=== PATIENT | female | born 1980 | race Caucasian/White ===

== ENCOUNTER 2018-12-18 09:43 | Emergency (ER) | payer MEDICAID, SELFPAY ==
[2018-12-18 09:44] VITALS: PULSE 100; RESP 18; TEMP 36.6; O2SAT 99; BMI 23.9
--- NOTE | 2018-12-18 10:07 | ED.VISSUMM ---
- ER Visit Summary Date of Service: 12/18/18 Chief Complaint: Sore throat History of Present Illness: The patient is a 38 F who presents with a sore throat that started yesterday. Pain is worse on the left side, but she does have some pain on the right as well. She also reports left ear pain. No fevers. No other symptoms. Physical Examination: Afebrile and vital signs unremarkable. Left TM shows effusion and she has posterior oropharyngeal erythema. No sign of abscess. Airway intact. Skin appears normal. HEENT exam otherwise unremarkable. Neck unremarkable. Test Results: None indicated Emergency Department Course and Treatment: Patient treated with a prednisone burst therapy and azithromycin. Adht-brf-yiscqwr remedies for pain. Follow-up with primary care for recheck. Return for any new or worsening issues. Treatment Plan: As above Disposition: Discharge Impression: 1. Pharyngitis This note was generated with [employer] dictation software. It may contain incorrect words, spelling, and punctuation that were not noted in review of the chart prior to signing ED Disposition - Plan for ED Patient: Referrals: Devendra Knight MD [Primary Care Provider] -
--- NOTE | 2018-12-18 10:10 | ED.DCSUM_ITS ---
- ER Visit Summary Date of Service: 12/18/18 Chief Complaint: Sore throat History of Present Illness: The patient is a 38 F who presents with a sore throat that started yesterday. Pain is worse on the left side, but she does have some pain on the right as well. She also reports left ear pain. No fevers. No other symptoms. Physical Examination: Afebrile and vital signs unremarkable. Left TM shows effusion and she has posterior oropharyngeal erythema. No sign of abscess. Airway intact. Skin appears normal. HEENT exam otherwise unremarkable. Neck unremarkable. Test Results: None indicated Emergency Department Course and Treatment: Patient treated with a prednisone burst therapy and azithromycin. Pmzm-oaf-piesaib remedies for pain. Follow-up with primary care for recheck. Return for any new or worsening issues. Treatment Plan: As above Disposition: Discharge Impression: 1. Pharyngitis This note was generated with [employer] dictation software. It may contain incorrect words, spelling, and punctuation that were not noted in review of the chart prior to signing ED Disposition - Plan for ED Patient: Referrals: Devendra Knight MD [Primary Care Provider] -
--- NOTE | 2018-12-18 10:10 | ED.DEP ---
ED Disposition - Plan for ED Patient: Instructions: ED Pharyngitis Viral Prescriptions: Azithromycin 500 mg PO DAILY 4 Days #8 tab Prednisone 10 mg PO UD #33 tab Referrals: Devendra Knight MD [Primary Care Provider] -
[2018-12-18] MEDS: Azithromycin 250 MG Tablet 500 MG PO (10:34)
[2018-12-18] MEDS: predniSONE 20 MG Tablet 60 MG PO (10:34)
[2018-12-18 10:35] VITALS: PULSE 99; RESP 17; O2SAT 99
== END 2018-12-18 10:39 | disposition home or self-care (01) ==
LOC: ED 10:27
PROVIDERS: Emergency Provider Emergency Medicine; Family Provider Family Medicine; PCP Family Medicine
DX: J02.9 Acute pharyngitis, unspecified (principal)
CPT/HCPCS: 99283

== ENCOUNTER 2019-08-23 14:34 | Emergency (ER) | payer MEDICAID, SELFPAY ==
[2019-08-23 14:39] VITALS: BP 131/84; PULSE 98; RESP 18; TEMP 37; O2SAT 100; BMI 24.4
--- NOTE | 2019-08-23 14:43 | ED.VISSUMM ---
- ER Visit Summary Date of Service: 08/23/19 Chief Complaint: Scalp laceration History of Present Illness: The patient is a 39 F no significant past medical history besides asthma. She was in her kitchen at home stood up forgot the cabinet door was open and lacerated top of her scalp. This occurred within the last hour. No LOC. She is on no blood thinners. Denies any other complaints. No neck pain or headache. She states her last tetanus shot is probably more than 10 years ago and needs updated. Physical Examination: Well-appearing female no acute distress. Vital signs are stable and afebrile. HEENT exam is 2-1/2 to 3 inch laceration on the top of her scalp. Involves the skin and subcu tissue. There is mild oozing. No pulsatile bleeding. No signs of foreign body or infection. No significant hematoma. Pupils are round reactive light. No facial trauma. C-spine nontender with normal range of motion of her neck. Lungs are clear to auscultation bilaterally. Heart regular rhythm. Chest wall nontender. Abdomen soft nontender. She is moving all 4 extremities. Neurovascularly intact and nontender. Back is nontender. Neurologically she is awake and alert with no focal motor deficits. GCS of 15. Test Results: None Emergency Department Course and Treatment: Lidocaine for local anesthetic. Tetanus updated. Injury note: Scalp laceration. Locally anesthetized with lidocaine. Cleaned with Shur-Clens. Washed and irrigated with saline. Explored. Involve the skin and subcu tissue. The wound is approximately 6 to 8 cm in length. Explored. No foreign bodies noted. No bony step-off. Closed using 5 simple interrupted 4-0 Ethilon sutures. Proper hemostasis wound closure obtained. Patient tolerated procedure well. Treatment Plan: Ice to the area. Wound care. Watch for any signs of infection. Suture removal 10 days. Disposition: Discharge Impression: Scalp laceration of 6 cm with emergency department repair Tetanus updated This note was generated with [employer] dictation software. It may contain incorrect words, spelling, and punctuation that were not noted in review of the chart prior to signing ED Disposition - Plan for ED Patient: Disposition: Home or Assisted Living Instructions: LACERATION, Scalp Referrals: Devendra Knight MD [Primary Care Provider] - 10 Day for suture removal Additional Instructions: Ice to scalp to decrease pain and swelling. Tylenol Motrin for pain and swelling. Keep the wound clean apply antibiotic ointment daily. Watch for any signs of infection such as pus, redness, swelling or fever or if seen return. Stitches should be removed in 10 days. Your tetanus shot has been updated and should be good for about 10 years.
--- NOTE | 2019-08-23 14:46 | ED.DEP ---
ED Disposition - Plan for ED Patient: Disposition: Home or Assisted Living Instructions: LACERATION, Scalp Referrals: Devendra Knight MD [Primary Care Provider] - 10 Day for suture removal Additional Instructions: Ice to scalp to decrease pain and swelling. Tylenol Motrin for pain and swelling. Keep the wound clean apply antibiotic ointment daily. Watch for any signs of infection such as pus, redness, swelling or fever or if seen return. Stitches should be removed in 10 days. Your tetanus shot has been updated and should be good for about 10 years.
[2019-08-23] MEDS: Diphth,Pertuss(Acell),Tet Vac 0.5 ML Vial IM (14:52)
== END 2019-08-23 15:26 | disposition home or self-care (01) ==
LOC: ED 15:26
PROVIDERS: Emergency Provider Emergency Medicine; Family Provider Family Medicine; PCP Family Medicine
DX: S01.01XA Laceration without foreign body of scalp, initial encounter (principal); Z23 Encounter for immunization; J45.909 Unspecified asthma, uncomplicated; Z72.0 Tobacco use; W26.8XXA Contact with other sharp object(s), not elsewhere classified, initial encounter; Y93.89 Activity, other specified; Y92.000 Kitchen of unspecified non-institutional (private) residence as the place of occurrence of the external cause; Y99.8 Other external cause status
CPT/HCPCS: 12002; 90471; 90715; 99283

== ENCOUNTER 2019-11-06 15:35 | Emergency (ER) | payer MEDICAID, SELFPAY ==
[2019-11-06 15:36] VITALS: BP 111/79; PULSE 118; RESP 16; TEMP 36.6; O2SAT 99; BMI 25.0
--- NOTE | 2019-11-06 16:11 | ED.DCSUM_ITS ---
History of Present Illness Chief Complaint: Nausea/Vomiting Informant: Patient - Abdominal Pain/Flank Pain Onset: Yesterday Context: Gradual Onset Timing: Intermittent Quality: Cramping Location: Diffuse Worsened by: Food - Nausea/Vomiting/Emesis GI Symptom: Nausea, Vomiting Onset: Yesterday Quality: Nonbilious - Diarrhea/Melena/Hematochezia GI Symptom: Diarrhea Onset: Yesterday Stool Quality: Watery. Negative for: Shama Thomason Narrative: Patient is a 39-year-old female with history of asthma presenting with vomiting and diarrhea. She states her symptoms started yesterday. She states she is unable to eat or drink anything because of the severity of her symptoms. She has had to many episodes to count. She has cramping abdominal pain right before these episodes. She notes that her sisters household all had the same symptoms the day before her. She was with them for . Her symptoms started the following day. Patient denies associated fever but does have chills. She denies any abdominal pain currently. She is concerned about dehydration which is why she came to the emergency room. She denies any other complaints at this time. Past Medical History - Allergies and Home Meds Allergies/Adverse Reactions: Allergies codeine Allergy (Verified 11/06/19 15:37) Vomiting Penicillins Allergy (Verified 11/06/19 15:37) Anaphylaxis hydromorphone [From Dilaudid] Adverse Reaction (Verified 11/06/19 15:37) Other Opioids - Morphine Analogues Adverse Reaction (Verified 11/06/19 15:37) Vomiting Primary Care Physician: NOT,DEFINED [NON-STAFF] - Past Medical History: - - Asthma Surgical History: - - x2 Smoking Status: Light Smoker (<10/day) Review of Systems General: Reports: Chills, Malaise. Denies: Fever, Sweats Eyes: Denies: Visual changes - bilaterally, Diplopia ENT: Denies: Rhinorrhea, Sore throat Cardiovascular: Denies: Chest pain, Palpitations Respiratory: Denies: Dyspnea, Cough, Dyspnea on exertion Gastrointestinal: Reports: Abdominal pain, Nausea, Vomiting, Diarrhea. Denies: Melena, Hematochezia Genitourinary: Denies: Dysuria, Hematuria, Frequency Musculoskeletal: Denies: Back pain, Extremity Pain Skin: Denies: Rash, Wounds Neurological: Denies: Headache, Weakness, Numbness Physical Exam Vital Signs/Narrative: Vital Signs Temp Pulse Resp BP Pulse Ox 11/06/19 15:36 98 F 118 H 16 111/79 99 Inital Vital Signs reviewed: Yes General: Well nourished, Well developed, No Acute Distress Head: Normocephalic, Atraumatic Eyes: Perrl, EOMI ENT: Moist mucous membranes, No rhinorrhea Neck: Supple, Nontender Cardiovascular: Regular rhythm, No murmurs, Tachycardia Respiratory: No distress, CTA bilaterally, Chest nontender Abdomen: Soft, Nontender, Nondistended, Normal bowel sounds Back: Nontender, Normal Inspection Extremities: Nontender, No edema Skin: Normal color, No rash Neurological: Alert, Oriented x3, Cranial nerves II-XII grossly intact, Normal Strength, Normal Sensation Psychological: Normal affect, Normal Mood Diagnostic/Tx/Re-eval Laboratory Data 11/06/19 11/06/19 11/06/19 16:15 16:15 17:05 WBC 7.8 RBC 4.74 Hgb 14.1 Hct 41.9 MCV 88.4 MCH 29.7 MCHC 33.7 RDW Std Deviation 43.6 RDW Coeff of Venancio 13.3 Plt Count 282 MPV 9.0 Immature Gran % (Auto) 0.300 Neut % (Auto) 78.7 H Lymph % (Auto) 8.7 L [place] % (Auto) 11.1 H Eos % (Auto) 0.9 Baso % (Auto) 0.3 Absolute Neuts (auto) 6.1 Absolute Lymphs (auto) 0.68 L Nucleated RBC % 0 Sodium 137 Potassium 3.1 L Chloride 100 Carbon Dioxide 31.0 Anion Gap 6 BUN 16 Creatinine 1.01 Estim Creat Clear Calc 63.09 Est GFR (MDRD) Af Amer 79 Est GFR (MDRD) Non-Af 65 BUN/Creatinine Ratio 15.8 Glucose 103 Calcium 8.1 L Total Bilirubin 0.60 AST 11 L ALT 20 Alkaline Phosphatase 56 Total Protein 6.4 Albumin 3.3 Globulin 3.1 Albumin/Globulin Ratio 1.1 Lipase 94 Urine Color Urine Clarity Urine pH Ur Specific [place] Urine Protein Urine Glucose (UA) Urine Ketones Urine Occult Blood Urine Nitrite Urine Bilirubin Urine Urobilinogen Ur Leukocyte Esterase Urine RBC Urine WBC Ur Squamous Epith Cells Urine Bacteria Urine Mucus Urine Test Negative 11/06/19 17:05 WBC RBC Hgb Hct MCV MCH MCHC RDW Std Deviation RDW Coeff of Venancio Plt Count MPV Immature Gran % (Auto) Neut % (Auto) Lymph % (Auto) [place] % (Auto) Eos % (Auto) Baso % (Auto) Absolute Neuts (auto) Absolute Lymphs (auto) Nucleated RBC % Sodium Potassium Chloride Carbon Dioxide Anion Gap BUN Creatinine Estim Creat Clear Calc Est GFR (MDRD) Af Amer Est GFR (MDRD) Non-Af BUN/Creatinine Ratio Glucose Calcium Total Bilirubin AST ALT Alkaline Phosphatase Total Protein Albumin Globulin Albumin/Globulin Ratio Lipase Urine Color Straw Urine Clarity Clear Urine pH 8.0 Ur Specific [place] 1.010 Urine Protein Negative Urine Glucose (UA) Normal Urine Ketones 5 H Urine Occult Blood Negative Urine Nitrite Negative Urine Bilirubin Negative Urine Urobilinogen Normal Ur Leukocyte Esterase 25 H Urine RBC 0 SEEN Urine WBC 0-5 SEEN Ur Squamous Epith Cells 0-5 SEEN Urine Bacteria 0 SEEN Urine Mucus 0 SEEN Urine Test - Medical Decision Making Patient is evaluated for about 24 hours of vomiting and diarrhea. She does not vomit or have diarrhea while in the emergency room. She is tachycardic upon arrival. Patient is likely dehydrated. Her abdomen is soft and nontender. I suspect she has gastroenteritis as she is had multiple other family members with the same symptoms. She is given IV fluids and labs are checked. She is mildly hypokalemic and is instructed to eat some high potassium foods over the next few days. Patient has improvement with IV fluids and IV Zofran. Patient is counseled on signs and symptoms requiring return to the emergency room. Patient verbalizes agreement and understand this plan. Patient discharged home in stable and improved condition. ED Disposition - Plan for ED Patient: Disposition: Home or Assisted Living Diagnosis: Nausea vomiting and diarrhea Instructions: VOMITING AND DIARRHEA, Nonspecific (Adult), FOOD POISONING or GASTROENTERITIS (6y-Adult) Prescriptions: Ondansetron [Zofran Odt] 4 mg PO Q8H PRN PRN #10 tab PRN Reason: Nausea Prescription Printed Referrals: NOT,DEFINED [NON-STAFF] - Additional Instructions: Your lab work showed that your potassium was a little low. Please eat some high potassium foods over the next few days such as bananas. Return to the emergency room if you develop worsening symptoms. Drink plenty of fluids to rehydrate yourself.
[2019-11-06] MEDS: Ondansetron 4 MG/2 ML Vial IV (16:22)
[2019-11-06] MEDS: 0.9% Normal Saline 1,000 ML 1000 ML IV (16:22)
[2019-11-06 16:30] LABS: Absolute Lymphocyte Count 0.68 X10^3/uL (0.83-4.51); Absolute Neutrophil Count 6.1 X10^3/uL (2.0-7.7); Basophil# 0.02 X10^3/uL; Basophil% 0.3 % (0-1); Eosinophil# 0.07 X10^3/uL; Eosinophils% 0.9 % (0-5); Hematocrit 41.9 % (37-47); Hemoglobin 14.1 g/dL (12.0-15.0); Lymphocyte # 0.68 X10^3/ul (4.0); Lymphocyte % 8.7 % (19-41); Mean Corp Hgb Conc 33.7 g/dL (32-36); Mean Corpuscular Hgb 29.7 pg (27.0-32.0); Mean Corpuscular Volume 88.4 fL (81-99); Monocyte# 0.86 X10^3/uL; Monocyte% 11.1 % (0-10); NRBC Flagged by Analyzer 0 % (0-5); Neutrophil # 6.13 X10^3/uL (2.7-7.7); Neutrophil % 78.7 % (47-70); Platelet Count 282 K/mm3 (150-450); RBC Distribution Width CV 13.3 % (11.6-14.6); RBC Distribution Width SD 43.6 fl (35.1-43.9); Red Blood Count 4.74 M/mm3 (4.2-5.4); White Blood Count 7.8 K/mm3 (4.4-11.0)
[2019-11-06 16:55] LABS: ALB/GLOB Ratio 1.1 RATIO (0.9-2.4); AST(SGOT) 11 U/L (15-37); Alanine Aminotransfer ALT/SGPT 20 U/L (13-56); Albumin, Serum 3.3 g/dL (3.2-5.0); Alkaline Phosphatase 56 U/L (45-117); Anion Gap 6 (5-15); BUN 16 mg/dL (7-18); BUN/Creat Ratio 15.8 RATIO (10-20); Calcium,Total 8.1 mg/dL (8.5-10.1); Chloride 100 mmol/L (98-107); Creatinine, Serum 1.01 mg/dL (0.55-1.02); EST Glomerular Filtration Rate 65 mL/min (>60); Est Glom Filt Rate - Afr Amer 79 mL/min (>60); Estimated Creatinine Clearance 63.09 ml/min; Globulin 3.1 g/dL (2.2-4.2); Glucose 103 mg/dL (74-106); Lipase 94 U/L (73-393); Potassium 3.1 mmol/L (3.5-5.1); Protein, Total 6.4 g/dL (6.4-8.2); Sodium Level 137 mmol/L (136-145)
[2019-11-06 17:11] LABS: Bacteria 0 SEEN /hpf (None Seen); Mucous, Urine 0 SEEN /hpf (<or=2+); Red Blood Cells-Urine 0 SEEN /hpf (0-5)
[2019-11-06 17:13] LABS: Color, Urine Straw (Yellow); Glucose, Dipstick Normal (Normal); Ketone-Dipstick 5 mg/dl (Negative); Leukocyte Esterase-Dipstick 25 /ul (Negative); Nitrite-Dipstick Negative (Negative); Occult Blood-Urine Negative /ul (Negative); Protein-Dipstick Negative (Negative); Urine Bilirubin Dipstick Negative (Negative); Urine Clarity Clear (Clear); Urine Urobilinogen Normal (Normal)
[2019-11-06 17:18] LABS: Internal QC Validated? YES +Cl - CLEAR BKGD; Pregnancy, Urine Negative Negative
[2019-11-06 17:20] LABS: Squamous Epithelial Cells - UA 0-5 SEEN /hpf (5-10); White Blood Cells 0-5 SEEN /hpf (0-5)
[2019-11-06 18:00] VITALS: PULSE 95; RESP 16; O2SAT 99
== END 2019-11-06 18:11 | disposition home or self-care (01) ==
PROVIDERS: Emergency Provider Emergency Medicine
DX: R11.2 Nausea with vomiting, unspecified (principal); R19.7 Diarrhea, unspecified; J45.909 Unspecified asthma, uncomplicated; F17.200 Nicotine dependence, unspecified, uncomplicated
CPT/HCPCS: 80053; 81001; 81025; 83690; 85025; 96361; 96374; 99283; J2405

== ENCOUNTER 2023-09-08 08:43 | Emergency (ER) | payer MEDICAID, SELFPAY ==
[2023-09-08 08:44] VITALS: BP 116/82; PULSE 92; RESP 16; TEMP 36.1; O2SAT 97; BMI 25.4
--- NOTE | 2023-09-08 09:11 | EDS_ITS ---
HPI History of Present Illness Chief Complaint: Asthma Informant: patient Onset/Context/Timing Onset: Today Context: sudden Timing: Continuous Quality: Positive for Wheezing Worsened by: Nothing Relieved by: Nothing Associated Symptoms cough; Negative for rhinorrhea, post nasal drip, ear pain, fever, sore throat, chills, sweats, clear sputum, white sputum, yellow sputum or green sputum Chest Pain: Positive for None and Tightness Narrative Narrative: Patient presents with asthma attack that began today. Patient states she was working at home in a [place] environment yesterday. Patient states she woke up with shortness of breath today. Patient states she feels herself wheezing. Patient admits to a cough but denies any sputum production. Patient denies any fevers or chills. Patient denies any sore throat or rhinorrhea. Patient denies any chest pain. Patient states she feels tight in her chest but denies any pain in her chest. PFSH PFSH Medical History (Updated 09/08/23 @ 10:[address] Brett Jefferson DO) Asthma Home Medications ondansetron 4 mg disintegrating tablet 4 mg PO Q8H PRN PRN Nausea #10 tabs 11/06/19 [Rx Last Taken Unknown] albuterol sulfate 90 mcg/actuation aerosol inhaler (Ventolin HFA) 1 - 2 puff inhalation Q4H PRN PRN Wheezing ##1 09/08/23 [Rx Last Taken Unknown] Allergy/AdvReac Type Severity Reaction Status Date / Time codeine Allergy Vomiting Verified 11/06/19 15:37 Penicillins Allergy Anaphylaxis Verified 11/06/19 15:37 hydromorphone [From Dilaudid] AdvReac Other Verified 11/06/19 15:37 Opioids - Morphine Analogues AdvReac Vomiting Verified 11/06/19 15:37 Surgical History (Updated 09/08/23 @ 10:[address] Brett Jefferson DO) H/O section History of ankle surgery Hx of left knee surgery Social History Smoking Status: Light Smoker (<10/day) ROS ROS ED Constitutional Constitutional ED: Denies chills or fever(s) Eyes Eyes: Denies blurry vision or change in vision ENT ENT ED: Denies rhinorrhea or sore throat Cardiovascular Cardiovascular: Denies chest pain or palpitations Respiratory/Chest Respiratory/Chest: Reports cough and dyspnea Gastrointestinal Gastrointestinal: Denies nausea or vomiting Genitourinary Genitourinary ED: Denies dysuria or hematuria Musculoskeletal Musculoskeletal: Reports back pain; Denies neck pain Integumentary Denies abscess or rash Neurologic Neurologic: Denies headache(s) or weakness Allergic/Immunologic Allergic/Immunologic ED: Denies mouth swelling or urticaria EXAM Physical Exam Const Vital Signs: 09/08/23 08:44 09/08/23 09:56 09/08/23 10:07 Temperature 96.9 F L Temperature Source Temporal Pulse Rate 92 102 H Respiratory Rate 16 18 Respiratory Effort Short of Breath Respiratory Depth Normal Respiratory Pattern Normal Tachypnea Blood Pressure 116/82 H Blood Pressure Mean 93 Pulse Ox 97 Oxygen Delivery Method Room Air Positive well nourished and well developed General Appearance ED: well developed and NAD HEENT Reports moist mucous membranes Neck supple and no JVD Resp normal respiratory effort Auscultation: wheezes expiratory wheezes and throughout Cardio regular rate and regular rhythm GI non-tender and non-distended Palpation: soft Neuro oriented x3 and CN's II-XII intact bilaterally Amberson Coma Scale: document GCS findings Spontaneous Obeys Commands Oriented 15 Sensorium / Orientation: alert Speech: speech normal Motor Exam: strength 5/5 throughout Psych mental status grossly normal MDM MDM MDM Narrative Medical decision making narrative: Differential diagnosis includes pneumonia, asthma, and viral infection. Chest x-ray will be obtained to assess for pneumonia. Radiography Chest X-Ray - ED: 2 View, Read by ED Physician, Read by Radiologist and No Acute Disease Diagnostic Testing: Clinical Impression(s) from Imaging Studies Chest X-Ray 09/08/23 09:55 IMPRESSION: No acute cardiopulmonary process identified. Electronically Signed: Shilpa Davies MD at 10:14 EDT , PA and lateral chest x-ray was obtained. There are 2 views. On my independent interpretation, lung frost are clear. There is normal cardiac silhouette. Bony thorax is normal. There is no acute process noted. Radiologist also interpreted the x-ray and agrees. Treatment and Re-Evaluation :: Smoking cessation was discussed. Patient was given DuoNeb aerosol here. Patient was given a prescription for albuterol inhaler. Patient was given a referral for primary care physician for follow-up care. Patient was instructed to follow-up in 5 to 7 days. Patient understood and was agreeable with the plan. All questions were answered. Discharge Plan Triage Chief Complaint: Asthma ED Provider: Brett Jefferson Dx/Rx/DC Orders Clinical Impression: Asthma exacerbation, Tobacco use disorder Instructions: ED Asthma, Acute (Adult), ED How to Quit Smoking Prescriptions: New albuterol sulfate [Ventolin HFA] 90 mcg/actuation HFA aerosol inhaler 1 - 2 puff inhalation Q4H PRN PRN (Reason: Wheezing) Qty: 1 0RF No Action ondansetron 4 MG tablet 4 mg PO Q8H PRN PRN (Reason: Nausea) Qty: 10 0RF Primary Care Provider: Care Physician,No Primary Referrals: Jerica Guy MD [Med Staff - Mineral Engineer] - 5-7 Days Care Physician,No Primary [Primary Care Provider] - Disposition Disposition: Home, Self Care
--- NOTE | 2023-09-08 09:55 | RAD_ITS ---
HISTORY: Dyspnea. TECHNIQUE: XR Chest 2 Views. COMPARISON: None. FINDINGS: CARDIOMEDIASTINAL BORDERS: Cardiac silhouette within normal limits in size. Mediastinal contour unremarkable. LUNGS: Radiographically clear. PLEURA: No pleural effusion or pneumothorax seen. OSSEOUS STRUCTURES: Unremarkable. RAD/Chest PA and Lateral IMPRESSION: No acute cardiopulmonary process identified. Electronically Signed: Shilpa Davies MD at 10:14 EDT ,
[2023-09-08] MEDS: Ipratropium/Albuterol Sulfate 3 ML AMPUL.NEB INHALATION (10:04)
[2023-09-08 10:07] VITALS: PULSE 102; RESP 18
== END 2023-09-08 10:33 | disposition home or self-care (01) ==
PROVIDERS: Emergency Provider Emergency Medicine; Visit Provider Emergency Medicine
DX: J45.901 Unspecified asthma with (acute) exacerbation (principal); F17.200 Nicotine dependence, unspecified, uncomplicated
CPT/HCPCS: 71046; 94640; 99282